=== PATIENT | male | born 1945 | race Caucasian/White ===

== ENCOUNTER → 2017-08-31 | Outpatient (CLI) | payer OTHER ==
[~2017-08-31] MED LIST: ALLOPURINOL 30300 M2 PO; COUMADIN 5 MG TA5 M1 PO; COZAAR 25 MG TA25 M1 PO; CYMBALTA60 MG PO; LANTUS100 UNIT/M SUBQ; LASIX 40 MG TAB40 M2 PO; LOPRESSOR25 PO; LYRICA 50 MG50 MG PO; MAGOX 400400 MG PO; MELATONIN5 M1; MULTI VITAMIN1 EACH PO; NITROGLYCERIN0.4 MG SUBLING; NOVOLOG100 UNIT/1 SUBQ; PRAVACHOL20 MG; TYLENOL EXTRA500 MG PO; ZYRTEC10 M5 PO
[2017-08-31 16:44] LABS: CALCIUM 8.4 mg/dL (8.5-10.1); CREATININE 2.1 mg/dL (0.6-1.3); POTASSIUM 3.6 mmol/L (3.5-5.1)
== END ==
LOC: M.LAB 15:42
PROVIDERS: Nurse Practitioner
DX: I12.9 Hypertensive chronic kidney disease with stage 1 through stage 4 chronic kidney disease, or unspecified chronic kidney disease (principal); N18.9 Chronic kidney disease, unspecified; R55 Syncope and collapse; I48.2 Chronic atrial fibrillation; E78.5 Hyperlipidemia, unspecified; E66.9 Obesity, unspecified; G47.33 Obstructive sleep apnea (adult) (pediatric); E11.69 Type 2 diabetes mellitus with other specified complication; Z98.890 Other specified postprocedural states

== ENCOUNTER → 2017-12-09 | Outpatient (CLI) | payer OTHER ==
--- NOTE | 2017-12-10 14:31 | EKG ---
[place] [address] ELECTROCARDIOGRAM REPORT Name: GEOFFREY JARRELL Room: [facility]#: [id number] Admission: 12/09/17 Attend Phys: Shlomo Cho MD Discharge: Date of : 43 Report #: [id number] THIS REPORT FOR: //name// [facility] Test Date: 2017-12-09 Test Time: 14:19:02 Pat Name: GEOFFREY JARRELL Department: Room: Gender: [employer] Operator: : 1945 Requested By: Shlomo Cho Order Number: [id number] Reading MD: Eduardo Solis Measurements Intervals Withams Rate: 104 P: DC: QRS: -10 QRSD: 89 T: 63 QT: 336 QTc: 442 Interpretive Statements Atrial fibrillation Compared to ECG 05/27/2017 10:37:57 Myocardial infarct finding no longer present Electronically Signed On 12-10-2017 14:31:44 CDT by Eduardo Solis [email or web address] <ELECTRONICALLY SIGNED> By: Day Solis MD, [facility] 12/10/17 1431 1419 1419 Day Solis MD, [facility] /EPI
== END ==
LOC: M.CRD 14:43
DX: I48.92 Unspecified atrial flutter (principal); I12.9 Hypertensive chronic kidney disease with stage 1 through stage 4 chronic kidney disease, or unspecified chronic kidney disease; E11.22 Type 2 diabetes mellitus with diabetic chronic kidney disease; N18.9 Chronic kidney disease, unspecified; E78.5 Hyperlipidemia, unspecified